=== PATIENT | male | born 1970 | race Caucasian/White ===

== ENCOUNTER → 2023-06-01 06:23 | Day surgery (SDC) | payer BC, SELFPAY | LOC: GI 06:23 | PROVIDERS: ATTENDING PHYSICIAN Internal Medicine Gastroenterology | DX: D12.0 Benign neoplasm of cecum (principal); D12.2 Benign neoplasm of ascending colon; D12.4 Benign neoplasm of descending colon; D12.5 Benign neoplasm of sigmoid colon; K63.5 Polyp of colon; K57.30 Diverticulosis of large intestine without perforation or abscess without bleeding; K62.1 Rectal polyp; K64.8 Other hemorrhoids | CPT/HCPCS: 45385; 45380; 88305 ==

== ENCOUNTER → 2023-06-05 19:04 | Outpatient (REF) | payer BC, SELFPAY | LOC: MRI 19:04 | PROVIDERS: ATTENDING PHYSICIAN Internal Medicine Gastroenterology; FAMILY PHYSICIAN Family Medicine | DX: R93.5 Abnormal findings on diagnostic imaging of other abdominal regions, including retroperitoneum (principal); K82.4 Cholesterolosis of gallbladder; K76.0 Fatty (change of) liver, not elsewhere classified | CPT/HCPCS: 74183; A9575 ==

== ENCOUNTER 2023-08-08 17:02 | Emergency (ER) | payer BC, SELFPAY ==
[2023-08-08 17:15] VITALS: BP 115/84
[2023-08-08 17:55] LABS: % Basophils 0.4 % (0-2); % Eosinophils 0.4 % (0-6); % Immature Granulocytes 0.8 % (0-0.5); % Lymphocytes 9.6 % (20.5-51.1); % Monocytes 7.5 % (1.7-9.3); % Neutrophils 81.3 % (42.2-75.2); Absolute Basophils 0.1 10^3/uL (0-0.2); Absolute Eosinophils 0.1 10^3/uL (0-0.7); Absolute Immature Granulocytes 0.2 10^3/uL (0-0.05); Absolute Lymphocytes 1.9 10^3/uL (1.2-3.4); Absolute Monocytes 1.5 10^3/uL (0.1-0.6); Hematocrit 44.1 % (39.0-52.0); Hemoglobin 15.6 g/dL (13.0-18.0); Mean Corp Hgb Conc. 35.4 g/dL (33.0-37.0); Mean Corpuscular Hgb 30.1 pg (27.0-31.0); Mean Platelet Volume 8.3 fL (7.4-10.4); Nucleated Red Blood Cells % 0 % (-); Platelet Count 354 10^3/uL (130-400); Red Blood Cell Count 5.19 10^6/uL (4.70-6.10); Red Cell Dist. Width 13.3 % (11.5-14.5); White Blood Cell Count 19.7 10^3/uL (4.8-10.8)
[2023-08-08 18:22] LABS: Lactic Acid 1.7 mmol/L (0.7-2.0)
[2023-08-08 18:30] LABS: ALT (SGPT) 33 U/L (0-50); AST (SGOT) 27 U/L (17-59); Albumin 4.8 g/dl (3.5-5.0); Alkaline Phosphatase 81 U/L (38-126); Blood Urea Nitrogen 19 mg/dl (9-20); Calcium 9.7 mg/dl (8.4-10.2); Carbon Dioxide 24 mmol/L (22-30); Chloride 99 mmol/L (98-107); Glucose 108 mg/dl (70-99); Lipase 54 U/L (23-300); Potassium 3.7 mmol/L (3.5-5.1); Sodium 136 mmol/L (135-145); Total Bilirubin 0.9 mg/dl (0.2-1.3); eGFR > 60.00
--- NOTE | 2023-08-08 19:22 | ED.GENMED ---
History of Present Illness
General
Chief Complaint: Abdominal Pain
Source: patient
Time Seen by Provider: 08/08/23 19:12
Travel History
Have you had any contact with someone who has COVID-19?: No
Do you have any symptoms of coronavirus? Fever > 100 degrees, chills, cough, shortness of breath, sore throat, loss of taste or smell, muscle aches, or headache?: No
History of Present Illness
History of Present Illness:
53-year-old male presents to the emergency room complaining of abdominal pain. Pain began 3 days ago in the left lower quadrant. It has become more intense over time. He was seen by his primary care doctor today who referred him to the emergency
room. Patient denies any fever. He had a colonoscopy a month or 2 ago and was told he did have diverticulosis. He denies any diarrhea. He denies any blood or mucus in the stools.
Past History
Past History
ED Past Medical History: HTN
ED Past Surgical History: Orthopedic
Social History
Tobacco: Smoker
Alcohol: None
Drug: None
Personal:
Living: with family
Employment: Employed
Phy Exam
Physical Exam
Physical Exam:
General: Awake, Alert, Oriented X3. No acute distress.
Vitals: unremarkable
Head: Atraumatic
Eyes: Pupils equal, EOMI
Throat: Airway intact, no exudates
Neck: Trachea midline
Lungs: Clear and equal b/l
Heart: Regular rate, no murmurs
Abd: Soft, moderate tenderness left lower quadrant, remainder the abdomen is soft and nontender, No pulsatile mass
Neuro: Nonfocal
Skin: Warm, dry, no rash
Extremities: pulses equal b/l, no edema
Course
Orders/Labs/Results
Orders:
Orders
08/08/23 17:34
Complete Blood Count/With Diff Urgent
Comprehensive Metabolic Panel Urgent
Lactic Acid Urgent
Lipase Urgent
08/08/23 19:21
CT Abd/Pel (IV only)-DH only Urgent
Comment:
Reason For Exam: llq abd pain
0.9% Sodium Chloride 1000 ml [Nss] 1,000 ml IV BOLUS
Ketorolac [Toradol] 15 mg IV NOW STA
08/08/23 20:50
Amoxicillin 875 mg/Clav 125 mg [Augmentin 875 mg/125 mg] 1 tablet PO NOW STA
Abnormal Lab Results
08/08/23
17:34
WBC 19.7 H 10^3/uL
(4.8-10.8)
Abs Immat Gran (auto) 0.2 H 10^3/uL
(0-0.05)
Absolute Neuts (auto) 16.0 H 10^3/uL
(1.4-6.5)
Absolute Monos (auto) 1.5 H 10^3/uL
(0.1-0.6)
Immature Gran % 0.8 H %
(0-0.5)
Neutrophils % 81.3 H %
(42.2-75.2)
Lymphocytes % 9.6 L %
(20.5-51.1)
Glucose 108 H mg/dl
(70-99)
08/08/23 17:34
08/08/23 17:34
Vital Signs
Initial and Last Documented VS:
Initial Vital Signs
Temp Pulse Resp BP Pulse Ox
98.4 F 100 20 115/84 98
08/08/23 17:15 08/08/23 17:15 08/08/23 17:15 08/08/23 17:15 08/08/23 17:15
Last Documented Vital Signs
Temp Pulse Resp BP Pulse Ox
98.4 F 84 20 121/73 96
08/08/23 17:15 08/08/23 19:42 08/08/23 17:15 08/08/23 21:00 08/08/23 21:00
MDM/Problems Addressed
Differential Diagnosis Includes:
Uncomplicated diverticulitis, diverticulitis with microperforation, abscess formation, kidney stone
MDM/Problems Addressed:
Patient presents with significant left lower quadrant abdominal pain. His white count is elevated at 19,000. Remaining labs are reassuring. CT shows evidence of uncomplicated diverticulitis per radiology. Will start patient on Augmentin. He had
some improvement in his discomfort with tramadol so would recommend continuing Tylenol and ibuprofen. He should follow a low residue diet. Patient asked about traveling to [facility]. I advised that he should be feeling better by the time
he leaves and if not he should reconsider taking that trip.
*Radiology
Radiology exam reviewed: radiology read reviewed
*Pulse Oximetry
Patient hypoxic: no
*Critical Care Note
Total Time (30-74mins, 75-104mins- exclusive of procedures): Not Applicable
ED Attending Note
-
Portions of this chart may have been created with voice recognition software.� Occasional wrong word or��sound alike� substitutions may have occurred due to the inherent limitations of voice recognition software.
Discharge Plan
Departure
Patient Disposition: Home (Routine Discharge)
Date of Disposition: 08/08/23
Time of Disposition: 20:52
Patient with high blood pressure during this ER visit?: No
Condition: Good
Discharge Problem:
Abdominal pain
Instructions: Diverticulitis (DC)
Prescriptions:
New
amoxicillin-pot clavulanate 875-125 mg tablet
1 tab PO BID Qty: 14 0RF
No Action
Amotriptaline
150 mg pe PO DAILY
lisinopril-hydrochlorothiazide 1 EACH tablet
1 ea PO DAILY
hydrocodone-acetaminophen 1 TABLET tablet
1 tab PO Q4HPRN PRN (Reason: pain) Qty: 20 0RF
meclizine [Antivert] 25 mg tablet,chewable
25 mg PO Q8HPRN PRN (Reason: dizziness) Qty: 11 0RF
Referrals:
Dexter Anderson MD [Family Provider] -
Trisha Robb MD [Active] -
Interventions
Interventions:
*Risk Screen - Suicide Last Done: 08/08/23 17:15
*General Assessment Last Done: 08/08/23 17:15
*Neglect/Abuse Screening Last Done: 08/08/23 17:15
ED- Fall Risk Assessment Last Done: 08/08/23 19:42
*ED COVID-19 Vaccine History Last Done: 08/08/23 19:42
*Nursing Disposition Last Done: 08/08/23 21:16
RB-Clivux-Yiknslftoh Assessment Last Done: 08/08/23 19:42
Discharge Date and Time
Discharge Date/Time: 08/08/23 21:17
Print Language: LUX[place]BOURG[place]
[2023-08-08] MEDS: NSS 1000 IV (19:34)
[2023-08-08] MEDS: TORADOL 15 MG IV (19:35)
[2023-08-08 19:41] VITALS: BMI 37.1
[2023-08-08 19:42] VITALS: BP 122/63
[2023-08-08 20:46] VITALS: BP 119/60
[2023-08-08 21:00] VITALS: BP 121/73
[2023-08-08] MEDS: AUGMENTIN 875 MG/125 MG 1 TABLET PO (21:01)
== END 2023-08-08 21:17 | disposition home or self-care (01) ==
LOC: EMR 17:02
PROVIDERS: Emergency Medicine; EMERGENCY PHYSICIAN Emergency Medicine; FAMILY PHYSICIAN Family Medicine
DX: R10.32 Left lower quadrant pain (principal); F17.200 Nicotine dependence, unspecified, uncomplicated
CPT/HCPCS: 99285; 96374; 96361; 74177; 80053; 83605; 83690; 85025; Q9967